=== PATIENT | male | born 2000 | race Caucasian/White ===

== ENCOUNTER 2023-04-24 14:14 | Emergency (ER) | payer OTHER, SELFPAY ==
[2023-04-24] VITALS (8 sets, daily range): BP systolic 122–149; BP diastolic 68–90; PULSE 73–92; RESP 9–18; TEMP 37.4; O2SAT 96–100
--- NOTE | ~2023-04-24 | CT_ITS ---
EXAMINATION: CT brain wo con DATE: 04/24/2023 14:43 INDICATION: confusion repetitive questions/Lt. eye contusion . TECHNIQUE: Computed tomography (CT) of the head was performed without intravenous contrast. The mA wa s adjusted according to patient size. Iterative reconstruction technique was employed. The dose-lengt h product was 681.00 mGy-cm. COMPARISON: None. FINDINGS: No acute intracranial hemorrhage or extra-axial fluid collection. No hydrocephalus, mass, or herniation. No acute ischemic infarct. Unremarkable dural venous sinus attenuation. No acute osseous abnormality. Mild left orbital soft tissue contusion. Small retention cyst or polyp in the right maxillary sinus, the remaining aerated spaces are clear. IMPRESSION: No acute intracranial process. Reviewed, dictated and finalized at location K.
--- NOTE | 2023-04-24 14:22 | ECG_ITS ---
Measurements Intervals [place] Rate: 91 P: 74 WV: 188 QRS: 55 QRSD: 120 T: 66 QT: 350 QTc: 431 Interpretive Statements SINUS RHYTHM INTRAVENTRICULAR CONDUCTION DELAY MINIMAL Q WAVES- DIFFUSE LEADS BORDERLINE ECG NO PREVIOUS ECG AVAILABLE FOR COMPARISON Electronically Signed On 04-24-2023 14:40:39 CDT by Lenin Rizvi D.O.
--- NOTE | 2023-04-24 14:22 | ED.AMS ---
HPI - Altered Mental Status General Chief Complaint: Altered Mental Status Stated Complaint: possible seizure Time Seen by Provider: 04/24/23 14:14 Source: patient, EMS and RN notes reviewed Mode of arrival: EMS Limitations: altered mental status History of Present Illness HPI narrative: patient brought in by EMS due to having an episode at work where he suddenly appeared to black out. His boss apparently laid him on the floor and as he came to he be became more confused. He has been repeating questions here in the ER. He continually asks where he is at and if he fell. He has been told that we are not for sure. He is able to tell me the month the year, his name. He is unsure of the day of the week with a day of the month. He knows that he is in a hospital but not sure which one. mom states that she has a history of similar seizures. There is no history of any recent heat exposure. complaint: confusion Onset (ago): minute(s) (45) Severity: moderate Consistency of symptoms: waxing and waning Context: unknown Associated symptoms: seizure ( coworkers said that he was shaking all over for about 3 minutes) Treatments prior to arrival: other (NONE) Related Data Home Medications Medication Instructions Recorded Confirmed buprenorphine 12 mg-naloxone 3 mg 1 film sublingual BID 04/24/23 04/24/23 sublingual film buspirone 30 mg tablet 30 mg PO BID 04/24/23 04/24/23 cyproheptadine 4 mg tablet 2 mg PO TID 04/24/23 04/24/23 pregabalin 50 mg capsule 50 mg PO BID 04/24/23 04/24/23 sertraline 100 mg tablet 200 mg PO DAILY 04/24/23 04/24/23 trazodone 50 mg tablet 50 mg PO HS 04/24/23 04/24/23 triamcinolone acetonide 0.1 % 1 applic topical BID 04/24/23 04/24/23 topical cream Allergies Allergy/AdvReac Type Severity Reaction Status Date / Time No Known Allergies Allergy Verified 04/24/23 14:26 [facility] Past Medical History Medical History (Updated 04/24/23 @ 15:28 by Mj Noel MD) Anxiety and depression DVT (deep venous thrombosis) Opioid abuse Surgical History Surgical History (Updated 04/24/23 @ 14:29 by Mj Noel MD) H/O knee surgery hematoma removed Family History Family History (Updated 04/24/23 @ 14:48 by Mj Noel MD) Mother Seizure Social History Social History (Updated 04/24/23 @ 14:33 by Mj Noel MD) Smoking packs per day: 0.5 Smoking cigarettes per day: 10.0 Smoking status: Current every day smoker Tobacco type: cigarettes Substance use type: former substance user and marijuana Other substance usage details: on Suboxone Exam Const: General: healthy appearing, no acute distress and alert Nutritional Appearance: well nourished and thin Orientation/consciousness: oriented to person, oriented to time and confusion Limitations: altered mental status HENMT: Head: hematoma left frontal ( Over left eyebrow) Ears: external ears normal Face/Nose/Sinus: Normal external nose present Face and sinus: normal facial exam Mouth: Yes moist mucous membranes Eyes: Conjunctivae: conjunctivae normal Pupils: Equal, round and reactive pupils present EOM: EOMs intact bilaterally Neck: Neck: normal visual inspection Resp: Effort & Inspection: normal respiratory effort Auscultation: clear to auscultation bilaterally Cardio: Rate: regular rate Rhythm: regular rhythm GI: GI Palp: Yes Soft to palpation and No Tenderness to palpation present (GI) Auscultation: normal bowel sounds Back/Spine/Pelvis: Cervical Spine: cervical ROM normal Thoracic/Lumbar Spine: thoraco-lumbar ROM normal Skin: General skin exam: normal color Rashes: rashes noted vesicles left lateral neck arrangement linear, color blanching and red and morphology linear; nontender Neuro: General: patient oriented x3, moves all extremities, no focal motor deficits and CN's II-XI intact bilaterally Speech: normal speech Gait exam (Neuro): Normal gait present Extrem: General: normal to inspection and no cl
[2023-04-24 14:29] LABS: Glucose Point of Care 132 mg/dl (65-105)
[2023-04-24 14:50] LABS: Basophils Absolute Auto 0.03 K/mm3 (0.00-0.10); Basophils Percent Auto 0.3 % (0.0-1.0); Eosinophils Absolute Auto 0.03 K/mm3 (0.02-0.50); Eosinophils Percent Auto 0.3 % (1.0-6.0); Hematocrit 41.3 % (40.0-54.0); Hemoglobin 13.8 g/dL (14.0-18.0); Immature Granulocyte Absolute 0.05 K/mm3 (0.00-0.00); Immature Granulocyte Percent A 0.5 % (0.0-0.0); Lymphocytes Percent Auto 19.3 % (18.0-42.0); Mean Corpuscular HGB Conc 33.4 g/dL (32.0-36.0); Mean Corpuscular Hemoglobin 30.7 pg (27.0-31.0); Mean Corpuscular Volume 91.8 fL (78.0-102.0); Mean Platelet Volume 9.6 fl (8.7-11.0); Monocytes Absolute Auto 0.97 K/mm3 (0.10-0.90); Monocytes Percent Auto 10.4 % (2.0-11.0); Neutrophils Absolute Auto 6.4 K/mm3 (1.7-7.2); Neutrophils Percent Auto 69.2 % (50.0-70.0); Platelet Count Result 277 K/mm3 (150-420); Red Cell Distribution Width 12.4 % (11.6-14.4); White Blood Count 9.3 K/mm3 (4.8-10.8)
[2023-04-24 14:58] LABS: Amphetamine Screen Urine Negative (Negative); Barbiturate Screen Urine Negative (Negative); Benzodiazepines Screen Urine Negative (Negative); Cannabinoid Screen Urine Positive (Negative); Cocaine Screen Urine Negative (Negative); Methadone Screen Urine Negative (Negative); Opiate Screen Urine Negative (Negative); Phencyclidine Screen Urine Negative (Negative)
--- NOTE | 2023-04-24 15:00 | PC.NURSE ---
NO CHANGE IN PT STATUS. THIS RN SPOKE WITH CO WORKER ON THE PHONE WHO REPORTS PT ARRIVED TO WORK AT 0700 THIS AM, DROVE HIMSELF THERE. PT WAS WORKING IN A BUILDING THAT IS NOT CLIMATE CONTROLLED, HOWEVER REPORTS IT IS NOT HOT OUTSIDE TODAY. PT WAS STANDING AROUND SMOKING A CIGARETTE, ASKED SOMEONE FOR SOME WATER. CO-WORKER REPORTS PT'S HAND BEGAN TO SHAKE AND HE WAS SPILLING HIS WATER, AT THAT TIME THE CO-WORKER MADE IT OVER TO THE PT AND LOWERED HIM TO THE GROUND. NO INJURIES REPORTED DURING EVENTS, HE REPORTS PT NEVER STRUCK HIS HEAD THROUGHOUT EVENT. CO-WORKER DESCRIBES FULL BODY SHAKES, AND EYES WERE FIXED TO THE LEFT SIDE DURING THE EVENT THAT LASTED APPROX 3 MINUTES. CO-WORKER DENIES ANY FOAMING OF THE MOUTH OR POSSIBLE ASPIRATION. PT CONTINUES TO REPEAT HIMSELF AT THIS TIME, DOES NOT RECALL THE EVENTS OF THE DAY, REPORTS I'M SCARED. PT'S MOTHER HAS ARRIVED AT BEDSIDE. DENIES PT HAVING ANY SEIZURE HX, HOWEVER REPORTS SHE HAS SEIZURES, STATES WHAT WAS DESCRIBED IS HOW HER EPISODES HAPPEN. MOTHER REPORTS PT DOES HAVE A DRUG ABUSE HX, HOWEVER IS UNSURE IF HE HAS USED ANY DRUGS TODAY. WILL CONTINUE TO MONITOR.
[2023-04-24 15:14] LABS: Alanine Aminotransferase 19 U/L (16-63); Albumin Level 4.5 g/dL (3.4-5.0); Alkaline Phosphatase 64 U/L (46-116); Anion Gap 10 mmol/L (8-16); Aspartate Amino Transferase 11 U/L (15-37); Bilirubin,Total 0.2 mg/dL (0.00-1.00); Blood Urea Nitrogen 15 mg/dL (7-18); Calcium 8.9 mg/dL (8.5-10.1); Carbon Dioxide 28 mmol/L (21-32); Chloride 101 mmol/L (98-108); Estimated CRCL calculation 113 ml/min; Estimated Glomerular Filt Rate > 60; Glucose 122 mg/dL (70-99); Osmolality Calculated 289 mOsm/kg (285-295); Potassium 2.8 mmol/L (3.5-5.1); Salicylate 3.3 mg/dL (2.8-20.0); Sodium 139 mmol/L (136-145); Thyroid Stimulating Hormone 2.31 uIU/mL (0.36-3.74); Total Protein 8.4 g/dL (6.4-8.2); Troponin I 6.6 ng/L (0.00-60.4)
[2023-04-24 15:15] LABS: Acetaminophen 0 ug/mL (10-30); Ethanol < 3 mg/dL (0-6)
[2023-04-24 15:17] LABS: Partial Thromboplastin Time 25.2 SEC (23.90-30.70); Prothrombin Time 10.9 Seconds (9.50-12.10)
[2023-04-24] MEDS: POTASSIUM BICARBONATE 25 MEQ TABEF 50 MEQ PO (15:25)
[2023-04-24] MEDS: ACETAMINOPHEN 500 MG TABLET 1000 MG PO (15:42)
== END 2023-04-24 15:45 | disposition home or self-care (01) ==
PROVIDERS: Emergency Provider Emergency Medicine; PCP Family Medicine
DX: G40.909 Epilepsy, unspecified, not intractable, without status epilepticus (principal); E87.6 Hypokalemia; F41.9 Anxiety disorder, unspecified; F32.A Depression, unspecified; F17.210 Nicotine dependence, cigarettes, uncomplicated; Z86.718 Personal history of other venous thrombosis and embolism
CPT/HCPCS: 36415; 70450; 80053; 80307; 82948; 84443; 84484; 85025; 85610; 85730; 93005; 99284; A9270